=== PATIENT | female | born 1970 | race Caucasian/White ===

== ENCOUNTER 2018-01-08 10:32 | Outpatient (REF) | payer BC, SELFPAY ==
--- NOTE | 2018-01-08 09:00 | PAPFT_PTH ---
PATIENT: Sydney Samayoa LOC: [facility] U#:[id number] AGE/SX: 47/F ROOM: RE01/08/[address]: MARIELA العراقي : 1970 BED: DIS: 01/08/2018 SPEC #: [id number] RECD: 01/08/18 13:09 STATUS: AMY REGris #: [id number] HANNAH: 01/08/18 09:[address]: Mya Nolen DEPT: [facility] Cytology RECD BY: Ann Gaitan ENTERED: 01/08/18 13:10 SP TYPE: PAPFT LUISITO DR: Porfirio Price MD Tissues: 1 - CX/ENDOCX FOR PAP SMEARS Procedures: PAP THIN PREP/UVM Screening HPV DNA PROBE Comments: [id number]
== END 2018-01-08 10:33 ==
LOC: LBN 10:32
PROVIDERS: PCP Family Medicine; Visit Provider Nurse Practitioner Family
DX: Z12.4 Encounter for screening for malignant neoplasm of cervix (principal); Z11.51 Encounter for screening for human papillomavirus (HPV)
CPT/HCPCS: 88142; 87624

== ENCOUNTER 2018-07-02 12:55 | Outpatient (REF) | payer BC, SELFPAY ==
[2018-07-02 13:56] LABS: Bilirubin Negative (Negative); Blood Large (Negative); Clarity Clear; Glucose Negative (Negative); Ketones Negative (Negative); Leukocyte Esterase Small (Negative); Nitrite Negative (Negative); Specific Gravity < 1.005 (1.005-1.025); Urobilinogen 0.2 EU/dL (Up TO 0.2)
[2018-07-02 13:58] LABS: C & S Indicated? Yes; Epithelial Cells Few HPF (Negative); RBC >50 (0-2); WBC >50 HPF (0-5)
== END 2018-07-02 13:15 ==
LOC: LBN 12:55
PROVIDERS: PCP Family Medicine
DX: R30.0 Dysuria (principal)
CPT/HCPCS: 87077; 81003; 81015; 87086; 87186

== ENCOUNTER 2018-09-01 19:43 | Emergency (ER) | payer BC, SELFPAY ==
[2018-09-01 20:14] VITALS: BP 120/75; PULSE 71; RESP 18; TEMP 36.7; O2SAT 100
--- NOTE | 2018-09-01 20:25 | DI.RAD_ITS ---
SYMPTOM/DIAGNOSIS: TRAUMA, LATERAL SIDED PAIN, BB INJURY RIGHT ANKLE: There is no evidence of a fracture or dislocation. Soft tissue swelling is identified over the lateral malleolus.
--- NOTE | 2018-09-01 20:26 | ED.GENADUL_ITS ---
Discharge Plan Disposition Patient Disposition: HOME Condition: Good Discharge Details Chief Complaint: Orthopedic Clinical Impression: Right ankle sprain Primary Care Provider: Porfirio Price ED Provider: Chapito Salas Home Meds and New Rx's Prescriptions: New ibuprofen 600 mg tablet 600 mg PO TID PRN (Reason: pain) Qty: 20 RF: 0 Discharge Instructions Instructions: Ankle Sprain (ED) Additional Instructions: Please keep the foot elevated, use ice, take ibuprofen to help with pain and swelling. Wear the walking boot for the next 1 to 2 weeks and follow-up with primary care for reevaluation. Return to the emergency department if you develop increasing pain, swelling, numbness discoloration to the foot. Referrals: Porfirio Price. [Primary Care Provider] - Medical Decision Making Patient fails the [place] ankle rules and x-rays ordered. Ice and ibuprofen given. X-rays per my review as well as preliminary radiology read negative for fracture. Discussed options with patient. She would like the walking boot so that she is able to ambulate and try to work. Recommend elevation, ice, ibuprofen and follow-up with the primary care in 1 to 2 weeks if not better. HPI General Mode of arrival: wheelchair . Date/Time Provider Initiated Documentation: 09/01/18 20:09 . Limitations to Documentation: no limitations . Information obtained by: patient and RN notes reviewed . HPI Narrative: Patient presents to ED with right ankle pain and swelling. Patient rolled her ankle tonight while playing basketball with her children. This was an eversion injury. Pain is mostly in the lateral malleolus. She was unable to ambulate after the injury. She has no numbness or tingling distally. She has no knee pain. She has no other complaints. Related Data Home Medications Medication Instructions Recorded Confirmed ibuprofen 600 mg PO TID PRN #20 tab 09/01/18 Previous Rx's Medication Instructions Recorded ibuprofen 600 mg PO TID PRN #20 tab 09/01/18 Allergies Allergy/AdvReac Type Severity Reaction Status Date / Time sulfamethoxazole Allergy Intermediate Skin Rash Verified 09/01/18 20:16 [From Bactrim] morphine Allergy Mild skin rash, Verified 09/01/18 20:16 skin crawly trimethoprim [From Bactrim] Allergy Mild Skin Rash Verified 09/01/18 20:16 General Stated Complaint: Orthopedic DAVID: 4 Review of Systems Constitutional Denies weakness Musculoskeletal Denies numbness and Denies tingling Comments: right ankle pain/swelling Integumentary/Breasts Denies wounds Neurologic Denies focal weakness, Denies numbness, Denies sensory deficit, Denies tingling, Denies paresthesias and Denies weakness [facility] Medical History Nephrolithiasis (Inactive 07/11/14) Surgical History section (Resolved) Cholecystectomy (Resolved) Ligation of fallopian tube (Resolved) Open Carpal Tunnel release (Resolved) lithotripsy X 2 (Resolved) Social History Smoking/Tobacco Use Status: Never Alcohol Intake: never Drug use: Never Substance use type: does not use Household members: spouse and children Duration: 45-60 minutes/day Frequency: daily Seatbelt use: always Do you feel safe at home: Yes Do you feel safe in your relationship?: Yes Exam Const General: cooperative, comfortable and no acute distress Orientation: alert and oriented x3 Skin Trauma: no lacerations or abrasions Neuro General: alert, oriented x3 and no focal motor deficits Sensory Exam: no sensory deficits noted Extrem Right lower extremity: knee Details: normal to inspection and normal ROM; no ten derness and no swelling, lower leg Details: normal to inspection; no tenderness and no localized swelling, ankle Details: tenderness Location: of the lateral malleolus, swelling Details: laterally and abnormal ROM Details: pain with active ROM and pain with passive ROM and foot Details: normal capillary refill, normal to inspection and toes with normal ROM; no tenderness Course Vital Signs Temperature 98.1 F 09/01/18 20:14 Pulse 71 09/01/18 20:14 Respiratory Rate 18 09/01/18 20:14 Blood Pressure 120/75 09/01/18 20:14 Pulse Oximetry 100 09/01/18 20:14 Temperature 98.1 F 09/01/18 20:14 Temperature Source Skin 09/01/18 20:14 Pulse 71 09/01/18 20:14 Respiratory Rate 18 09/01/18 20:14 Blood Pressure 120/75 09/01/18 20:14 Pulse Oximetry 100 09/01/18 20:14 Oxygen Delivery Method Room Air 09/01/18 20:14 Oxygen Flow Rate 0 09/01/18 20:14 Pain Level 5 09/01/18 20:14
[2018-09-01] MEDS: Ibuprofen 600 MG TAB PO (20:28)
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
== END 2018-09-01 21:30 | disposition home or self-care (01) ==
PROVIDERS: Emergency Provider Emergency Medicine; PCP Family Medicine
DX: S93.401A Sprain of unspecified ligament of right ankle, initial encounter (principal); X50.9XXA Other and unspecified overexertion or strenuous movements or postures, initial encounter; Y93.67 Activity, basketball
CPT/HCPCS: 29515; 99283; 73610; 99282; L4361

== ENCOUNTER 2020-03-27 10:15 | Outpatient (REF) | payer BC, SELFPAY ==
[2020-03-27 14:40] LABS: Bilirubin Negative (Negative); Blood Moderate (Negative); Clarity Clear (Clear); Glucose Negative (Negative); Ketones Negative (Negative); Leukocyte Esterase Small (Negative); Nitrite Negative (Negative); Urobilinogen 0.2 EU/dL (Up TO 0.2)
[2020-03-27 14:54] LABS: Bacteria Many HPF (Negative); Epithelial Cells Many HPF (Negative)
[2020-03-27 14:55] LABS: C & S Indicated? No/Sq. Contamination; Casts Negative LPF (Negative); Crystals Negative HPF (Negative); Mucus Negative (Negative)
== END 2020-03-27 10:35 ==
LOC: LBN 10:15
PROVIDERS: PCP Family Medicine
DX: R31.9 Hematuria, unspecified (principal); R30.0 Dysuria; R10.9 Unspecified abdominal pain
CPT/HCPCS: 81003; 81015

== ENCOUNTER 2020-04-03 03:28 | Outpatient (CLI) | payer BC, SELFPAY ==
[2020-04-03 13:37] LABS: ALT 29 U/L (14-59); AST 18 U/L (15-37); Albumin 3.6 g/dL (3.4-5.0); Alkaline Phosphatase 91 U/L (46-116); Anion Gap 10.4 mmol/L (3-11); BUN 19 mg/dL (7-18); Bilirubin, Total 0.2 mg/dL (0.2-1.0); CO2 27.6 mmol/L (21.0-32.0); CREATININE 1.33 mg/dL (0.55-1.02); Calcium 8.8 mg/dL (8.5-10.1); Chloride 104 mmol/L (98-107); Cholesterol 224 mg/dL (<200); Estimated GFR 42.76 (mL/min/1.73m2); Glucose 93 mg/dL (74-106); HDL Cholesterol 47 mg/dL (40-60); Potassium 4.7 mmol/L (3.5-5.1); Sodium 142 mmol/L (136-145); Triglyceride 473 mg/dL (<150)
[2020-04-03 14:09] LABS: LDL CHOLESTEROL 97 mg/dL (<100)
== END 2020-04-03 03:48 ==
PROVIDERS: PCP Family Medicine; Visit Provider Family Medicine
DX: R10.32 Left lower quadrant pain (principal); N20.2 Calculus of kidney with calculus of ureter; Z13.220 Encounter for screening for lipoid disorders; Z98.890 Other specified postprocedural states
CPT/HCPCS: 36415; 80053; 80061; 83721

== ENCOUNTER 2020-04-13 01:18 | Outpatient (CLI) | payer BC, SELFPAY ==
--- NOTE | 2020-04-13 06:30 | DI.US_ITS ---
EXAM: US RENAL CLINICAL HISTORY: left flank pain, remote history kidney stones,H/O LITHOTRIPSY,R10.9,Z98.890. TECHNIQUE: Vasquez scale, color and spectral Doppler were used. COMPARISON: US ABDOMEN ULTRASOUND (P) from 10/20/2012 FINDINGS: Renal size in cm: Right: 9.8. Left: 12.0. There is a 8 millimeter hyperechoic focus at the midpole of the left kidney which is possibly a nonob structive calculus. There appears to be slight dilatation left renal infundibulum I. Bladder:Ureteral jets: Right: Visualized and unremarkable. Left: Visualized and unremarkable. Prevoid vol:88 cc Postvoid vol:4 cc IMPRESSION: There appears to be a calculus at the midpole of the left kidney measuring approximately 8 millimeter . There is slight dilatation left collecting system-left kidney calices. Follow-up recommended. Bladder empties adequately. Difficult to assess for mass in the bladder with only 88 pre void volume in the urinary bladder. DATA REPOSITORY:
== END 2020-04-13 01:38 ==
PROVIDERS: PCP Family Medicine
DX: R10.9 Unspecified abdominal pain (principal); Z87.442 Personal history of urinary calculi
CPT/HCPCS: 76770

== ENCOUNTER 2020-04-25 21:10 | Outpatient (REF) | payer BC, SELFPAY ==
[2020-04-25 22:02] LABS: Bilirubin Negative (Negative); Blood Trace-intact (Negative); Clarity Sl Cloudy (Clear); Glucose Negative (Negative); Ketones Negative (Negative); Leukocyte Esterase Small (Negative); Nitrite Positive (Negative); Specific Gravity >= 1.030 (1.005-1.025); Urobilinogen 0.2 EU/dL (Up TO 0.2); pH 5.5 (5-8)
[2020-04-25 22:13] LABS: Bacteria Few HPF (Negative); C & S Indicated? No/Sq. Contamination; Casts Negative LPF (Negative); Crystals Rare Calcium Oxalate HPF (Negative); Epithelial Cells Moderate HPF (Negative); Mucus Negative (Negative); RBC 0-2 HPF (0-2)
== END 2020-04-25 21:30 ==
LOC: LBN 21:10
PROVIDERS: PCP Family Medicine
DX: R30.0 Dysuria (principal)
CPT/HCPCS: 81003; 81015

== ENCOUNTER 2020-05-01 02:48 | Outpatient (CLI) | payer BC, SELFPAY ==
[2020-05-01 08:54] LABS: ALT 23 U/L (14-59); AST 12 U/L (15-37); Albumin 3.6 g/dL (3.4-5.0); Alkaline Phosphatase 82 U/L (46-116); Anion Gap 11.3 mmol/L (3-11); BUN 22 mg/dL (7-18); Bilirubin, Total 0.3 mg/dL (0.2-1.0); CO2 24.7 mmol/L (21.0-32.0); CREATININE 1.35 mg/dL (0.55-1.02); Calcium 8.3 mg/dL (8.5-10.1); Chloride 102 mmol/L (98-107); Estimated GFR 42.03 (mL/min/1.73m2); Glucose 113 mg/dL (74-106); Potassium 3.5 mmol/L (3.5-5.1); Sodium 138 mmol/L (136-145); Triglyceride 501 mg/dL (<150)
[2020-05-01 09:10] LABS: LDL CHOLESTEROL 112 mg/dL (<100)
== END 2020-05-01 03:08 ==
PROVIDERS: PCP Family Medicine
DX: E78.1 Pure hyperglyceridemia (principal); N20.0 Calculus of kidney; N32.89 Other specified disorders of bladder
CPT/HCPCS: 36415; 80053; 83721; 84478

== ENCOUNTER 2020-05-02 21:06 | Outpatient (REF) | payer BC, SELFPAY ==
[2020-05-02 18:55] LABS: Bilirubin Negative (Negative); Blood Moderate (Negative); Clarity Clear (Clear); Glucose Negative (Negative); Ketones Negative (Negative); Leukocyte Esterase Negative (Negative); Nitrite Negative (Negative); Urobilinogen 0.2 EU/dL (Up TO 0.2)
[2020-05-02 19:28] LABS: Bacteria Moderate HPF (Negative); C & S Indicated? Yes; Crystals Negative HPF (Negative); Epithelial Cells Few HPF (Negative); Mucus Negative (Negative); RBC 0-2 HPF (0-2); WBC 0-2 HPF (0-5)
== END 2020-05-02 21:26 ==
LOC: LBN 21:06
PROVIDERS: PCP Family Medicine
DX: R30.0 Dysuria (principal)
CPT/HCPCS: 81003; 81015; 87086

== ENCOUNTER 2020-05-17 18:47 | Outpatient (REF) | payer BC, SELFPAY | END 2020-05-17 19:07 | LOC: LBN 18:47 | PROVIDERS: PCP Family Medicine; Visit Provider Nurse Practitioner Gerontology | DX: R31.9 Hematuria, unspecified (principal); N32.89 Other specified disorders of bladder | CPT/HCPCS: 87086 ==

== ENCOUNTER 2020-05-23 01:31 | Outpatient (CLI) | payer BC, SELFPAY ==
[2020-05-23] MEDS: Normal Saline - Diluent 50 ML VIAL IV ×2 (13:14→13:15)
[2020-05-23] MEDS: Omnipaque 350 MG/ML 100 ML BTL IJ (13:14)
[2020-05-23] MEDS: Normal Saline Flush 10 ML SYR IVP (13:15)
--- NOTE | 2020-05-23 13:25 | DI.CT_ITS ---
EXAM: CT ABDOMEN PELVIS WO/W TECHNIQUE: Imaging Protocol: Axial computed tomography images with coronal and sagittal reformatted images were created and reviewed CONTRAST MATERIAL: Intravenous: Omnipaque 350 Contrast volume:structured data in ml Contrast route:I V - Oral:yes / no COMPARISON: No exams were available for comparison FINDINGS: ABDOMEN: Lung Bases: Normal where visualized. Liver: Normal density. No measurable mass. Gallbladder and biliary tract: Status post cholecystectomy. No biliary dilatation. Pancreas: Normal density, no abnormal calcifications or inflammatory process. Spleen: Normal. Kidneys: Normal size, contour and axis. Bilateral small nonobstructing stones. No obstructive uropa thy. No masses seen. No perinephric collection. Symmetric and homogeneous enhancement and excretio n. No collecting system filling defects. Adrenal glands: No masses seen. Lymph nodes: Within normal limits. Abdominal Aorta: Abdominal portion non-dilated. PELVIS: Bladder: Symmetric distention, no gross wall thickening. No mass or calcification. Bowel: No obstruction or bowel wall thickening. Normal appendix. Peritoneal cavity: No ascites, collection or mesenteric inflammatory response. Bones: Degenerative disc changes at L5-S1. Scoliosis.. Reproductive organs: Mildly enlarged uterus. Unremarkable ovaries. IMPRESSION: Bilateral nonobstructing renal calculi. No evidence of UTI ureteral calculi or hydronephrosis. No r enal mass. No evidence of pyelonephritis. RADIATION DOSE DELIVERED: 2,583.79mGy.cm Total DLP DATA REPOSITORY: All CT scans at this facility are submitted to the National Radiology Data Registry (NRDR) Dose Index Registry (DIR) with the [employer] (ACR). RADIATION OPTIMIZATION: All CT scans at this facility use at least one of these dose optimization te chniques: automated exposure control; mA and/or kV adjustment per patient size (includes targeted exa ms where dose is matched to clinical indication); or iterative reconstruction.
== END 2020-05-23 01:51 ==
PROVIDERS: PCP Family Medicine; Visit Provider Nurse Practitioner Gerontology
DX: N20.0 Calculus of kidney (principal)
CPT/HCPCS: 74178; J3490

== ENCOUNTER 2021-03-07 12:55 | Outpatient (REF) | payer BC, SELFPAY | END 2021-03-07 12:56 | disposition home or self-care (01) | LOC: LBN 12:55 | PROVIDERS: PCP Family Medicine; Visit Provider Family Medicine | DX: N39.0 Urinary tract infection, site not specified (principal) | CPT/HCPCS: 87077; 87086; 87186 ==

== ENCOUNTER 2021-06-18 15:40 | Outpatient (REF) | payer BC, SELFPAY ==
--- NOTE | 2021-06-18 14:30 | PAPFT_PTH ---
PATIENT: Sydney Samayoa LOC: [facility] U#:[id number] AGE/SX: 50/F ROOM: RE06/18/[address]: MARIELA العراقي : 1970 BED: DIS: 06/18/2021 SPEC #: [id number] RECD: 06/18/21 17:52 STATUS: AMY REQ #: [id number] HANNAH: 06/18/21 14:[address]: Mya Nolen DEPT: [facility] Cytology RECD BY: Ann Gaitan ENTERED: 06/18/21 17:52 SP TYPE: PAPFT OTHR DR: Porfirio Price MD Tissues: 1 - CX/ENDOCX FOR PAP SMEARS Procedures: PAP THIN PREP/UVM Screening HPV DNA PROBE Comments: [id number]
== END 2021-06-18 15:41 | disposition home or self-care (01) ==
LOC: LBN 15:40
PROVIDERS: PCP Family Medicine; Visit Provider Nurse Practitioner Family
DX: Z12.4 Encounter for screening for malignant neoplasm of cervix (principal); Z11.51 Encounter for screening for human papillomavirus (HPV)
CPT/HCPCS: 88142; 87624

== ENCOUNTER 2021-12-31 17:41 | Emergency (ER) | payer BC, SELFPAY ==
[2021-12-31 18:08] VITALS: BP 141/78; PULSE 87; RESP 18; TEMP 36.3; O2SAT 99
--- NOTE | 2021-12-31 18:54 | NUR.NOTE ---
Patient seen by pcp at time of dog bite, pcp reported animal bite.Nursing Note:
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
--- NOTE | 2021-12-31 21:25 | NUR.NOTE ---
attempted to fax referral to ENT for follow up of jaw lump ?cyst. No answer on fax machine result report.Nursing Note:
== END 2021-12-31 20:36 | disposition home or self-care (01) ==
PROVIDERS: Emergency Provider Emergency Medicine; PCP Family Medicine
DX: M27.9 Disease of jaws, unspecified (principal); R22.0 Localized swelling, mass and lump, head
CPT/HCPCS: 99281; 99282

== ENCOUNTER 2024-05-28 01:00 | Outpatient (CLI) | payer OTHER, SELFPAY ==
[2024-05-28 08:25] LABS: Anion Gap 7.9 mmol/L (3-11); BUN 18 mg/dL (7-18); CO2 30.1 mmol/L (21.0-32.0); CREATININE 1.2 mg/dL (0.55-1.02); Calcium 9.1 mg/dL (8.5-10.1); Calculated LDL 81 mg/dL (<100); Chloride 104 mmol/L (98-107); Cholesterol 202 mg/dL (<200); Glucose 102 mg/dL (74-106); HDL Cholesterol 61 mg/dL (40-60); Potassium 4.7 mmol/L (3.5-5.1); Sodium 142 mmol/L (136-145); Triglyceride 301 mg/dL (<150)
== END 2024-05-28 01:01 | disposition home or self-care (01) ==
LOC: LBO 01:00
PROVIDERS: PCP Family Medicine; Visit Provider Family Medicine
DX: E78.5 Hyperlipidemia, unspecified (principal); E87.1 Hypo-osmolality and hyponatremia
CPT/HCPCS: 36415; 80048; 80061